=== PATIENT | male | born 1990 | race Caucasian/White ===

== ENCOUNTER 2017-01-05 12:19 | Day surgery (SDC) | payer OTHER ==
--- NOTE | ~2017-01-05 | OP ---
Record Of Operation [facility] [address] [place]. [address] NAME: TAURUS PETE : 89 STATUS : [facility]#: [id number] AGE: 26 ADM/REG DATE : 01/05/17 MR#: [id number] REPORT SERV DATE: 01/05/17 DICTATED BY: MANJULA FRAUSTO III DATE: 01/05/17 REPORT STATUS : Draft TRANSCRIBED BY: MODL DATE: 01/05/17 DATE OF PROCEDURE: 01/05/2017 PROCEDURE: Cystoscopy, right retrograde, right ureteroscopy, and insertion of double-J stent. PREOPERATIVE DIAGNOSIS: Right ureteral calculus. POSTOPERATIVE DIAGNOSIS: Right ureteral calculus. ANESTHESIA: General. SURGEON: Manjula Frausto M.D. DESCRIPTION OF PROCEDURE: Following induction of adequate general anesthesia, the patient was placed in dorsal lithotomy position, prepped and draped in a sterile fashion. The urethra was normal. The bladder was unremarkable. There were no stone material in the bladder. A retrograde showed a fairly narrow distal ureter. I could not see a stone, the upper ureter was somewhat wider but definitely not hydronephrotic, the calices were sharp. Because he said it had been hurting in his right flank up until yesterday and today I went ahead and placed a wire. I was not able to get more than 2 cm above the bladder but on retrograde there were no filling defects. I placed a balloon and dilated with a 4 cm balloon. The ureteral scope I could get at that point up to about S3 but could not progress, so a [id number] sheath was placed and a flexible scope was placed over wire and with some mild pressure on the fluid I was able to maneuver it through the mid ureter crossing of the vessels and up to approximately L5. I did not see any stones, however, at this point, I could not progress with the scope and I elected to simply place a stent. A 01/14 stent was placed with a partially and cold loop in the upper pole and a loop in the bladder. A loop in the bladder was a full loop. The patient's bladder was then drained and the procedure terminated. He tolerated the procedure well and I will have him back in 2 weeks to decide whether we pull the stent and allow him to pass whatever might still be in the urinary tract or to do a full second look. I did speak to his or doll maker and explained to her that the CT did not show any stones in the kidney, but there is only a 2-3 mm stone. So after a week of standing that certainly should pass. OB/MODL Manjula Frausto III, M.D. / [id number] CC: Manjula Frausto III, M.D.
[~2017-01-05 12:19] MED LIST: BENTYL20 PO; LEVSINTAB PO; NORCO1 TAB PO; PR25 PO; PRILO PO; SUCR PO
[2017-01-15] MEDS ORDERED: FLOMAX4 PO (12:42)
[2017-01-15] MEDS ORDERED: CIP5 PO (12:44)
[2017-01-15] MEDS ORDERED: IBU-200200 MG PO (12:44)
== END 2017-01-05 19:15 | disposition home or self-care (01) ==
LOC: SDC 12:19
PROVIDERS: Urology
PROC: 0T768DZ Dilation of Right Ureter with Intraluminal Device, Via Natural or Artificial Opening Endoscopic (ICD-10-PCS; principal; 2017-01-05 14:30)
DX: N20.1 Calculus of ureter (principal); E66.01 Morbid (severe) obesity due to excess calories; G25.81 Restless legs syndrome; K21.9 Gastro-esophageal reflux disease without esophagitis; F41.9 Anxiety disorder, unspecified; F32.9 Major depressive disorder, single episode, unspecified; L40.9 Psoriasis, unspecified; K50.90 Crohn's disease, unspecified, without complications; Z68.41 Body mass index [BMI] 40.0-44.9, adult; Z79.891 Long term (current) use of opiate analgesic; Z79.899 Other long term (current) drug therapy; Z98.890 Other specified postprocedural states
CPT/HCPCS: 74420; A9270-GY; C1726; C1758; C1769; C1894; C2617; J0330; J2250; J2405; J2710; J3010; Q9967